=== PATIENT | male | born 1990 | race Caucasian/White ===

== ENCOUNTER 2018-02-18 21:26 | Emergency (ER) | payer OTHER ==
[~2018-02-18] VITALS: Ht 185.4 cm; Wt 87.1 kg
[2018-02-18] MEDS ORDERED: ESCI10TA PO (21:47)
[2018-02-18] MEDS ORDERED: ALPR0.25 PO (21:47)
--- NOTE | 2018-02-18 21:55 | NUR ---
PT A/OX4, RESPONSIVE TO VERBAL AND TACTILE STIMULI. PT C/O R SHOULDER PAIN SECONDARY TO FALL WHILE PLAYING RUGBY PRIOR TO ARRIVAL. PMSC IN RUE INTACT AND < 3 SECS. PT DENIES LOC, HEAD INJURY, SOB, C/P, N/V. PT SELF AMBULATED WITHOUT DIFFICULTY. PT IN BED, VSS. BED IN LOW AND LOCKED POSITION WITH BILATERAL UPPER SIDERAILSX2 UP. Addendum: 02/18/18 at 2307 by DAKIM NO ACUTE DISTRESS NOTED. Addendum: 02/18/18 at 2340 by DAKIM PT INSTRUCTED NOT TO DRIVE. PT WILL BE DRIVEN HOME BY FRIEND (BRO) IN A PRIVATE VEHICLE.
--- NOTE | 2018-02-18 21:57 | NUR ---
ER at bedside
[2018-02-18] MEDS ORDERED: ONDANSETRON ODT 4 MG TAB.RAPDIS SL ONE (22:00)
[2018-02-18] MEDS ORDERED: HYDROCODONE/APAP 5-325MG TABLET PO ONE (22:00)
--- NOTE | 2018-02-18 22:04 | NUR ---
Xray at bedside.
[2018-02-18] MEDS ORDERED: ONDANSETRON ODT 4 MG TAB.RAPDIS ONE (22:06)
[2018-02-18] MEDS ORDERED: HYDROCODONE/APAP 5-325MG TABLET ONE (22:06)
--- NOTE | 2018-02-18 23:05 | NUR ---
PT REMAINS IN BED, VSS. PT FOUND TO HAVE R CLAVICLE FRACTURE. ER AWARE.
--- NOTE | 2018-02-18 23:35 | NUR ---
Patient provided with shoulder splint to Sabino shoulder, PATRICIA WNL.
--- NOTE | 2018-02-18 23:38 | NUR ---
Patient discharged to home in stable conditon. Written and verbal after care instructions given. Patient verbalizes understanding of instructions. PT D/C WITH PRESCRITION FOR NORCO 5/325. SHOULDER IMMOBILIZER PLACED PRIOR TO D/C. PT DOES NOT APPEAR TO BE IN APPARENT DISTRESS AT THIS TIME. PT INSTRUCTED TO F/U WITH PCP RE R CLAVICLE FX. PT SELF-AMBULATED WITHOUT DIFFICULTY. ALL BELONGINGS WITH PT AT TIME OF D/C.
[2018-02-18 23:40] VITALS: BP 136/88
== END 2018-02-18 23:41 | disposition home or self-care (01) ==
LOC: ER 21:27
DX: S42.021A Displaced fracture of shaft of right clavicle, initial encounter for closed fracture (principal); F12.10 Cannabis abuse, uncomplicated; W18.30XA Fall on same level, unspecified, initial encounter; Y93.63 Activity, rugby; Y92.89 Other specified places as the place of occurrence of the external cause; Y99.8 Other external cause status
CPT/HCPCS: 71045; 73020; 73060; A4663; Q0162